=== PATIENT | female | born 1990 | race Hispanic/Latino ===

== ENCOUNTER → 2024-01-15 | Day surgery (SDC) | payer SELFPAY ==
[~2024-01-15] MED LIST: ACETAMINOPHEN 1000 MG/100 ML IV ONE; ACETAMINOPHEN-1 EAC4 PO; BUPIVACAINE HCL 0.5% INJ 30 ML VIAL INJ ONE; DEXAMETHASONE SOD PHOS INJ 4 MG/ML SDV ONE; FENTANYL CITRATE/PF 100MCG/2 ML INJ ONE; LIDOCAINE HCL 2% LOCAL INJ 5 ML SDV VIAL INJ ONE; METOCLOPRAMIDE HCL 10 MG/2ML VIAL ONE; MIDAZOLAM HCL 2 MG/2 ML VIAL ONE; MUPIROCIN 2% OINT 22 GM TUBE ONE; ONDANSETRON HCL INJ 2MG/ML 2ML 2 MG/ML VIAL ONE; PROPOFOL IV EMULSION 10 MG/ML 20 ML VIAL ONE; SEVOFLURANE INHAL SOLN 250 ML PEN BTL ONE
[2024-01-15] MEDS: LACTATED RINGER'S 1,000 ML ONE (06:29)
[2024-01-15] MEDS: FENTANYL CITRATE/PF 100MCG/2 ML INJ ONE (10:39)
[2024-01-15 11:10] VITALS: TEMP 97.8
[2024-01-15] MEDS: HYDROCODONE/APAP 5MG-325MG TAB ONE (11:10)
[2024-01-15 11:33] VITALS: BP 122/80; PULSE 73; RESP 18; O2SAT 99
== END | disposition home or self-care (01) ==
LOC: OR 06:21
PROVIDERS: ATTEND Plastic Surgery
DX: S62.336A Displaced fracture of neck of fifth metacarpal bone, right hand, initial encounter for closed fracture (principal); X58.XXXA Exposure to other specified factors, initial encounter
CPT/HCPCS: 26615; 81025; C1713 ×2; J0131; J0690; J1100; J2001; J2250; J2405; J2704; J2765; J3010; J7121